=== PATIENT | male | born 1970 | race African-American/Black ===

== ENCOUNTER 2017-02-09 06:15 | Day surgery (SDCO) | payer SELFPAY ==
[~2017-02-09] VITALS: Ht 175.3 cm; Wt 80.7 kg
[2017-02-09 07:16] LABS: BASOPHIL 0.3 % (0-2); EOSINOPHIL 2.3 % (0-5); HCT 44.2 % (42.0-52.0); HGB 15.6 g/dl (13.2-18.0); LYMPHOCYTE 26.2 % (15-48); MCH 30.6 pg (25.0-31.0); MCHC 35.3 g/dL (32.0-36.0); MCV 86.7 fL (78.0-100.0); MPV 8.6 fL (6.0-9.5); NEUTROPHIL 61.2 % (41-80); PLT 289 K/uL (150-400); RDW 13.7 % (11.5-14.0); WBC 6.1 K/uL (4.0-10.5)
[2017-02-09 07:30] LABS: ALBUMIN 4.5 g/dL (3.5-5.0); BILIRUBIN - TOTAL 0.9 mg/dL (0.1-1.0); CREATININE 1.6 mg/dL (0.7-1.2); GLOBULIN (CALCULATION) 2.6 g/dL (2.2-4.2); POTASSIUM 3.5 mmol/L (3.5-5.1); TOTAL PROTEIN 7.1 g/dL (6.4-8.3)
[2017-02-09 08:20] LABS: BILIRUBIN NEGATIVE (NEGATIVE); BLOOD NEGATIVE Ery/uL (NEGATIVE); CLARITY CLEAR (CLEAR); COLOR YELLOW (YELLOW); GLUCOSE (U) NORMAL (NORMAL); KETONE (U) NEGATIVE (NEGATIVE); LEUKOCYTES NEGATIVE Leu/uL (NEGATIVE); NITRITE NEGATIVE (NEGATIVE); PROTEIN 1+ mg/dL (NEGATIVE); SPECIFIC GRAVITY 1.025 (1.001-1.030); UROBILINOGEN 0.2 mg/dL (0.2-1.0); pH 5.5 (5.0-9.0)
[2017-02-09 08:30] LABS: INR 1.09 (0.9-1.2); PROTHROMBIN TIME 13.7 SECONDS (11.7-14.0)
[2017-02-09 08:37] LABS: BACTERIA 1+; URINARY WBC RARE
[2017-02-09 11:08] LABS: AMPHETAMINES NEGATIVE (NEGATIVE); BARBITURATES NEGATIVE (NEGATIVE); BENZODIAZEPINES NEGATIVE (NEGATIVE); COCAINE POSITIVE (NEGATIVE); MARIJUANA (THC) NEGATIVE (NEGATIVE); METHADONE NEGATIVE (NEGATIVE); TRICYCLIC ANTIDEPRESSANT NEGATIVE (NEGATIVE)
[2017-02-09 13:33] LABS: CKMB 3.99 ng/mL (0.97-4.94); TROPONIN T < 0.010 ng/mL
[2017-02-09 16:08] LABS: URINE CREATININE 369.1 mg/dL (40-278); URINE TOTAL PROTEIN-RANDOM 39.8 mg/dL
[2017-02-09 19:35] LABS: CKMB 3.84 ng/mL (0.97-4.94); TROPONIN T < 0.010 ng/mL
[2017-02-10 03:48] LABS: HCT 46.3 % (42.0-52.0); HGB 16.2 g/dl (13.2-18.0); MCH 29.9 pg (25.0-31.0); MCV 85.6 fL (78.0-100.0); MPV 8.6 fL (6.0-9.5); RBC 5.41 M/uL (4.70-6.00); RDW 13.5 % (11.5-14.0); WBC 5.2 K/uL (4.0-10.5)
[2017-02-10 04:03] LABS: CREATININE 1.4 mg/dL (0.7-1.2); MAGNESIUM 2.04 mg/dL (1.40-2.10); PHOSPHORUS 2.6 mg/dL (2.7-4.5); POTASSIUM 3.5 mmol/L (3.5-5.1)
[2017-02-10] MEDS ORDERED: HYDRALAZINE HCL50 MG PO (13:48)
[2017-02-10] MEDS ORDERED: IMDUR 30MG TABL30 MG PO (13:48)
== END 2017-02-10 14:45 | disposition home or self-care (01) ==
LOC: FER 06:15 → FTCU 08:52
PROVIDERS: Emergency Medicine; Internal Medicine Nephrology; ADMIT Internal Medicine
DX: I16.0 Hypertensive urgency (principal); N17.9 Acute kidney failure, unspecified; I42.9 Cardiomyopathy, unspecified; K61.0 Anal abscess; F14.10 Cocaine abuse, uncomplicated; F12.90 Cannabis use, unspecified, uncomplicated; R00.1 Bradycardia, unspecified; Z91.14 Patient's other noncompliance with medication regimen
CPT/HCPCS: 36415; 71010; 80048; 80053; 80061; 80305; 81001; 82550; 82553; 82570; 83735; 84100; 84156; 84484; 85025; 85610; 93005; G0378; J2405; J2543

== ENCOUNTER 2017-02-11 14:48 | Emergency (ER) | payer SELFPAY ==
[~2017-02-11 14:48] MED LIST: HYDRALAZINE HCL50 MG PO; IMDUR 30MG TABL30 MG PO
[2017-02-11 15:51] LABS: BASOPHIL 0.1 % (0-2); EOSINOPHIL 0.4 % (0-5); HGB 16.7 g/dl (13.2-18.0); LYMPHOCYTE 8.6 % (15-48); MCH 30.1 pg (25.0-31.0); MCHC 35.5 g/dL (32.0-36.0); MCV 84.7 fL (78.0-100.0); MONOCYTE 6.3 % (0-12); MPV 8.5 fL (6.0-9.5); NEUTROPHIL 84.6 % (41-80); PLT 294 K/uL (150-400); RBC 5.55 M/uL (4.70-6.00); RDW 13.7 % (11.5-14.0); WBC 8.4 K/uL (4.0-10.5)
[2017-02-11 16:13] LABS: ALBUMIN 4.4 g/dL (3.5-5.0); BILIRUBIN - TOTAL 0.8 mg/dL (0.1-1.0); CREATININE 1.7 mg/dL (0.7-1.2); GLOBULIN (CALCULATION) 2.5 g/dL (2.2-4.2); LACTIC ACID 1.4 mmol/L (0.5-2.2); POTASSIUM 3.6 mmol/L (3.5-5.1); TOTAL PROTEIN 6.9 g/dL (6.4-8.3)
[2017-02-11 16:14] LABS: CKMB 3.37 ng/mL (0.97-4.94); TROPONIN T < 0.010 ng/mL
[2017-02-11 17:16] LABS: BILIRUBIN 1+ mg/dL (NEGATIVE); BLOOD NEGATIVE Ery/uL (NEGATIVE); CLARITY CLEAR (CLEAR); COLOR YELLOW (YELLOW); GLUCOSE (U) NORMAL (NORMAL); KETONE (U) 1+ (SMALL) mg/dL (NEGATIVE); LEUKOCYTES NEGATIVE Leu/uL (NEGATIVE); NITRITE NEGATIVE (NEGATIVE); PROTEIN 1+ mg/dL (NEGATIVE); pH 6.5 (5.0-9.0)
[2017-02-11 17:20] LABS: URINARY RBC RARE; URINARY WBC RARE
[2017-02-11 17:21] LABS: BACTERIA TRACE; SQUAMOUS EPITHELIAL CELLS RARE
[2017-02-11 17:27] LABS: AMPHETAMINES NEGATIVE (NEGATIVE); BARBITURATES NEGATIVE (NEGATIVE); BENZODIAZEPINES NEGATIVE (NEGATIVE); COCAINE POSITIVE (NEGATIVE); MARIJUANA (THC) POSITIVE (NEGATIVE); TRICYCLIC ANTIDEPRESSANT NEGATIVE (NEGATIVE)
[2017-02-11 17:28] LABS: METHADONE NEGATIVE (NEGATIVE)
== END 2017-02-11 18:52 | disposition home or self-care (01) ==
LOC: FER 14:48
PROVIDERS: Nurse Practitioner Family
DX: F41.1 Generalized anxiety disorder (principal); F14.10 Cocaine abuse, uncomplicated; F12.10 Cannabis abuse, uncomplicated; I11.9 Hypertensive heart disease without heart failure; Z79.899 Other long term (current) drug therapy
CPT/HCPCS: 36415; 80053; 80305; 81001; 82550; 82553; 83605; 84484; 85025; 85379; 87040; 93005; J2060